=== PATIENT | male | born 1970 | race Caucasian/White ===

== ENCOUNTER 2016-12-05 14:22 | Emergency (ER) | payer OTHER ==
[~2016-12-05] VITALS: Ht 170.2 cm; Wt 86.0 kg
[~2016-12-05 14:22] MED LIST: CIAL10TA PO; MULT1TAB84 PO; VITA10002 PO; ZANT150T2 PO
[2016-12-05 14:24] VITALS: BP 141/95; PULSE 72; RESP 20; TEMP 98.2; O2SAT 98
[2016-12-05 15:00] VITALS: BP 136/85; PULSE 69; RESP 17; O2SAT 98
[2016-12-05 16:00] VITALS: BP 129/78; PULSE 70; RESP 17; O2SAT 98
[2016-12-05 16:18] LABS: AUTOMATED NEUTROPHIL # 2.9 TH/MM3 (1.8-7.7); BASOPHIL % 0.5 % (0.0-2.0); EOSINOPHIL # 0.2 TH/MM3 (0-0.4); EOSINOPHIL % 3.4 % (0.0-4.0); HEMATOCRIT 40.3 % (39.0-51.0); HEMO FLAGS DIFF FINAL; LYMPH % 33.2 % (9.0-44.0); LYMPHOCYTE # 1.8 TH/MM3 (1.0-4.8); MEAN CELL VOLUME 87.3 FL (80.0-100.0); MEAN CORPUSCULAR HGB CONC 34.4 % (32.0-36.0); MONO % 9.4 % (0.0-8.0); NEUT % 53.5 % (16.0-70.0); PLATELET COUNT 192 TH/MM3 (150-450); RED BLOOD COUNT 4.62 MIL/MM3 (4.50-5.90); RED CELL DISTRIBUTION WIDTH 12.5 % (11.6-17.2); WHITE BLOOD COUNT 5.5 TH/MM3 (4.0-11.0)
[2016-12-05 16:40] LABS: ANION GAP 7 MEQ/L (5-15); AST (GOT) 18 U/L (15-37); BICARBONATE 27.7 MEQ/L (21.0-32.0); BLOOD UREA NITROGEN 17 MG/DL (7-18); CHLORIDE 107 MEQ/L (98-107); GLOMERULAR FILTRATION RATE 78 ML/MIN (>89); POTASSIUM 3.7 MEQ/L (3.5-5.1); SODIUM (NA) 142 MEQ/L (136-145)
[2016-12-05 16:43] LABS: ALKALINE PHOSPHATASE 64 U/L (45-117); ALT (GPT) 30 U/L (12-78); TOTAL BILIRUBIN ADULT 0.4 MG/DL (0.2-1.0)
[2016-12-05 17:00] VITALS: BP 122/60; PULSE 76; RESP 17; O2SAT 97
[2016-12-05] MEDS ORDERED: HYDR-3533 PO (17:13)
--- NOTE | 2016-12-05 17:14 | PD ---
HPI Chief Complaint: Abdominal Pain Time Seen by Provider: 14:57 Travel History International Travel<30 days: No Contact w/Intl Traveler<30days: No Traveled to known affect area: No History of Present Illness HPI So 46-year-old man who presents to the emergency department complaining of epigastric abdominal pain is been intermittent for the past several days. Worse at night. Is been excruciating a couple other times. It is associated with eating fatty food. He saw his primary doctor at an ultrasound performed at [place]. Review of ultrasound shows gallbladder wall thickening, stones in the gallbladder neck, and some tenderness over the gallbladder. It's a little bit improved now as far as pain. He's had nausea and some retching 2. Some subjective chills. He otherwise had been feeling generally well and healthy. No history of abdominal surgery. History Past Medical History Medical History: Denies Significant Hx Social History Alcohol Use: No Tobacco Use: No Allergies-Medications (Allergen,Severity, Reaction): Coded Allergies: No Known Allergies (Unverified , 12/05/16) Reported Meds & Prescriptions Reported Meds & Active Scripts Active No Active Prescriptions or Reported Medications Review of Systems Except as stated in HPI: all other systems reviewed are Neg Physical Exam Narrative GENERAL: Well-appearing 46-year-old man SKIN: Focused skin assessment warm/dry. HEAD: Atraumatic. Normocephalic. EYES: Pupils equal and round. No scleral icterus. No injection or drainage. ENT: No nasal bleeding or discharge. Mucous membranes pink and moist. NECK: Trachea midline. No JVD. CARDIOVASCULAR: Regular rate and rhythm. No murmur appreciated. RESPIRATORY: No accessory muscle use. Clear to auscultation. Breath sounds equal bilaterally. GASTROINTESTINAL: Abdomen soft, non-tender, nondistended. Minimal right upper quadrant tenderness. MUSCULOSKELETAL: No obvious deformities. No clubbing. No cyanosis. No edema. NEUROLOGICAL: Awake and alert. No obvious cranial nerve deficits. Motor grossly within normal limits. Normal speech. PSYCHIATRIC: Appropriate mood and affect; insight and judgment normal. Data Data Last Documented VS Vital Signs Date Time Temp Pulse Resp B/P (MAP) Pulse Ox O2 Delivery O2 Flow Rate FiO2 12/05/16 16:00 70 17 129/78 (95) 98 Room Air 12/05/16 14:24 98.2 Orders Orders Complete Blood Count With Diff (12/05/16 15:12) Comprehensive Metabolic Panel (12/05/16 15:12) Lipase (12/05/16 15:12) Iv Access Insert/Monitor (12/05/16 15:12) Labs Laboratory Tests Test 12/05/16 15:20 White Blood Count 5.5 TH/MM3 Red Blood Count 4.62 MIL/MM3 Hemoglobin 13.9 GM/DL Hematocrit 40.3 % Mean Corpuscular Volume 87.3 FL Mean Corpuscular Hemoglobin 30.0 PG Mean Corpuscular Hemoglobin Concent 34.4 % Red Cell Distribution Width 12.5 % Platelet Count 192 TH/MM3 Mean Platelet Volume 9.4 FL Neutrophils (%) (Auto) 53.5 % Lymphocytes (%) (Auto) 33.2 % Monocytes (%) (Auto) 9.4 % Eosinophils (%) (Auto) 3.4 % Basophils (%) (Auto) 0.5 % Neutrophils # (Auto) 2.9 TH/MM3 Lymphocytes # (Auto) 1.8 TH/MM3 Monocytes # (Auto) 0.5 TH/MM3 Eosinophils # (Auto) 0.2 TH/MM3 Basophils # (Auto) 0.0 TH/MM3 CBC Comment DIFF FINAL Differential Comment Blood Urea Nitrogen 17 MG/DL Creatinine 1.03 MG/DL Random Glucose 82 MG/DL Total Protein 7.3 GM/DL Albumin 3.6 GM/DL Calcium Level 8.6 MG/DL Alkaline Phosphatase 64 U/L Aspartate Amino Transf (AST/SGOT) 18 U/L Alanine Aminotransferase (ALT/SGPT) 30 U/L Total Bilirubin 0.4 MG/DL Sodium Level 142 MEQ/L Potassium Level 3.7 MEQ/L Chloride Level 107 MEQ/L Carbon Dioxide Level 27.7 MEQ/L Anion Gap 7 MEQ/L Estimat Glomerular Filtration Rate 78 ML/MIN Lipase 146 U/L [facility] Medical Decision Making Medical Screen Exam Complete: Yes Emergency Medical Condition: Yes Interpretation(s) CBC unremarkable CMP unremarkable Differential Diagnosis Symptomatically lithiasis, cholecystitis, biliary colic, gastritis, other Narrative Course Medical decision making This is a 46-year-old man who presents to the emergency department complaining of epigastric abdominal pain. He had an ultrasound that showed gallbladder wall thickening and a stone in the gallbladder neck as well as some tenderness over the gallbladder. He looks well now. Minimal tenderness, no symptoms, labs are normal. Likely needs his gallbladder out in the next week or [address] Ding, he can see him in the office tomorrow. Diagnosis Primary Impression: Cholelithiasis Additional Instructions: Follow-up with Dr. Ding tomorrow morning. He can go to his office at 8:30 at [place]. Return to the emergency department for any new or worsening symptoms. Use Lortab if needed for severe pain. Med/Other Pt SpecificInfo: Prescription(s) given Scripts Hydrocodone-Acetaminophen (Lortab) 5-325 Mg Tab 1 TAB PO Q6H Y for PAIN, #10 TAB 0 Refills Prov: Anirudh Carlson MD 12/05/16 Disposition: 01 DISCHARGE HOME Condition: Stable Anirudh Carlson MD Dec 05, 2016 17:14
--- NOTE | 2016-12-05 17:16 | PD ---
Data Data Last Documented VS Vital Signs Date Time Temp Pulse Resp B/P (MAP) Pulse Ox O2 Delivery O2 Flow Rate FiO2 12/05/16 17:00 76 17 122/60 (80) 97 Room Air 12/05/16 14:24 98.2 Orders Orders Complete Blood Count With Diff (12/05/16 15:12) Comprehensive Metabolic Panel (12/05/16 15:12) Lipase (12/05/16 15:12) Iv Access Insert/Monitor (12/05/16 15:12) Labs Laboratory Tests Test 12/05/16 15:20 White Blood Count 5.5 TH/MM3 Red Blood Count 4.62 MIL/MM3 Hemoglobin 13.9 GM/DL Hematocrit 40.3 % Mean Corpuscular Volume 87.3 FL Mean Corpuscular Hemoglobin 30.0 PG Mean Corpuscular Hemoglobin Concent 34.4 % Red Cell Distribution Width 12.5 % Platelet Count 192 TH/MM3 Mean Platelet Volume 9.4 FL Neutrophils (%) (Auto) 53.5 % Lymphocytes (%) (Auto) 33.2 % Monocytes (%) (Auto) 9.4 % Eosinophils (%) (Auto) 3.4 % Basophils (%) (Auto) 0.5 % Neutrophils # (Auto) 2.9 TH/MM3 Lymphocytes # (Auto) 1.8 TH/MM3 Monocytes # (Auto) 0.5 TH/MM3 Eosinophils # (Auto) 0.2 TH/MM3 Basophils # (Auto) 0.0 TH/MM3 CBC Comment DIFF FINAL Differential Comment Blood Urea Nitrogen 17 MG/DL Creatinine 1.03 MG/DL Random Glucose 82 MG/DL Total Protein 7.3 GM/DL Albumin 3.6 GM/DL Calcium Level 8.6 MG/DL Alkaline Phosphatase 64 U/L Aspartate Amino Transf (AST/SGOT) 18 U/L Alanine Aminotransferase (ALT/SGPT) 30 U/L Total Bilirubin 0.4 MG/DL Sodium Level 142 MEQ/L Potassium Level 3.7 MEQ/L Chloride Level 107 MEQ/L Carbon Dioxide Level 27.7 MEQ/L Anion Gap 7 MEQ/L Estimat Glomerular Filtration Rate 78 ML/MIN Lipase 146 U/L MDM Supervised Visit with RAFIQ: No Diagnosis Primary Impression: Cholelithiasis Referrals: Jose Alfredo Ding MD 1 day Patient Instructions: General Instructions, Biliary Colic (ED) Departure Forms: Tests/Procedures Additional Instruction: Follow-up with Dr. Ding tomorrow morning. He can go to his office at 8:30 at [place]. Return to the emergency department for any new or worsening symptoms. Use Lortab if needed for severe pain. Scripts Hydrocodone-Acetaminophen (Lortab) 5-325 Mg Tab 1 TAB PO Q6H Y for PAIN, #10 TAB 0 Refills Prov: Anirudh Carlson MD 12/05/16 Disposition: 01 DISCHARGE HOME Condition: Stable Anirudh Carlson MD Dec 05, 2016 17:16
== END 2016-12-05 17:34 | disposition home or self-care (01) ==
LOC: NEPE 14:22
DX: K80.20 Calculus of gallbladder without cholecystitis without obstruction (principal)
CPT/HCPCS: 80053; 83690; 85025; 99283

== ENCOUNTER → 2016-12-12 | Day surgery (SDC) | payer OTHER ==
[~2016-12-12] MED LIST changes: +ACETAMINOPHEN 1000 MG/100 ML 100 ML IV ONE; +BUPIVACAINE/EPINEPHRINE 0.5% 50 ML VIAL ONE; -CIAL10TA PO; +DEXAMETHASONE SOD PHOS 4 MG/ML VIAL IV ONE; +HYDR-3533 PO; +KETOROLAC TROMETHAMINE 30 MG/ML (IVP) VIAL IV PUSH ONE; +LACTATED RINGER'S 1000 ML INJ 1,000 ML ONE; +LIDOCAINE HCL 1% PF 5 ML AMPULE OTHER ONE; +MEPERIDINE HCL 25 MG/ML VIAL ONE; +MIDAZOLAM HCL 2 MG/2 ML VIAL ONE; -MULT1TAB84 PO; +PROPOFOL 200 MG/20 ML AMP IV ONE; -VITA10002 PO; -ZANT150T2 PO; +ceFAZolin INJ 1,000 MG VIAL ONE; +metroNIDAZOLE 500 MG INJ 100 ML IV ONE
--- NOTE | 2016-12-12 09:59 | TN ---
cc: MEHDI DING DATE OF SURGERY 12/12/2016 PREOPERATIVE DIAGNOSIS Cholelithiasis, cholecystitis. POSTOPERATIVE DIAGNOSIS Cholelithiasis, cholecystitis. PROCEDURE Laparoscopic cholecystectomy. ANESTHESIA General. SURGEON Dr. Ding. INDICATIONS The patient is a pleasant 46-year-old gentleman who was sent to the emergency room after a US showed GB disease. He had some abdominal pain after eating barbecue dinner and saw his primary care physician who ordered the ultrasound. He had similar pain a few months before. THe workup in the emergency room was done but he felt better and wanted to see me in the office and the ER sent him to my office. The patient was scheduled for above. PROCEDURE The patient is taken to the operating room, placed in supine position. After anesthesia, his abdomen was prepped with Betadine. We make an incision just below the umbilicus. The Veress needle is inserted after saline load test is performed. The abdomen is dissect down to the fascia. The fascia is entered, trocar is introduced. The cannula is introduced. Two other working ports were placed, one below the xiphoid and one in between the two previously placed ports. The gallbladder can be grasped superiorly and laterally, identifying adhesions from omentum which were taken down with blunt dissection, hydrodissection, electrocautery device. We are then able to visualize the cystic duct and doubly ligate it and transect it. The cystic artery has both an anterior and posterior branch. These are doubly ligated and transected. The gallbladder is then teased off the gallbladder bed, placed in EndoCatch and pulled out through the umbilical incision. During the dissection a small niesha was made in the gallbladder and a small amount of bile was spilled. This is evacuated. No stones were spilled. The abdomen was irrigated. The liver is smooth. The omental surfaces are smooth. We do check our dissection site. There is excellent hemostasis without biliary leakage. The trocar is then removed. The 10-mm trocar at the fascial layer is closed with 0 Vicryl. The skin is closed with a 4-0 Vicryl. Steri-Strips are applied. Sterile bandage applied. The patient tolerated the procedure well and had no immediate postop complication. Mehdi Ding MD JDB/SSB /9:33 AM /9:38 AM MTDD
== END | disposition home or self-care (01) ==
LOC: ESDC 06:40
PROVIDERS: ATTEND Surgery
DX: K80.10 Calculus of gallbladder with chronic cholecystitis without obstruction (principal)
CPT/HCPCS: 00790; 47562; 88304; J0131; J0690; J1100; J1885; J2175; J2250; J3010; J7120